=== PATIENT | female | born 1935 | race Caucasian/White ===

== ENCOUNTER → 2019-05-03 23:50 | Outpatient (CLI) | payer MEDICARE, BC ==
[2012-12-25 13:26] VITALS: BMI 25.8
[~2019-05-03 23:50] MED LIST: ACETAMINOPHEN500 M1 PO; ASPIRIN 81 MG E81 MG PO; BOUDREAUXS113 GM TP; DULCOLAX10 MG/SUPP RC; KEPPRA1000 MG PO; LOPRESSOR50 MG PO; LOTRISONE CREAM45 GM TP; MEGACE400 MG/10; MIRALAX17 GM PO; PEPCID20 MG PO; PERIACTIN4 MG; PLAVIX75 MG PO; PRINIVIL20 MG PO; SENOKOT-S TABLE1 TAB; ULTRAM50 MG; ZOCOR40 MG PO
== END | disposition home or self-care (01) ==
LOC: D.LABREF 23:50
PROVIDERS: ATTEND Urology
DX: N39.0 Urinary tract infection, site not specified (principal)